=== PATIENT | male | born 1950 | race Caucasian/White ===

== ENCOUNTER 2025-06-08 11:26 | Outpatient (CLI) | payer MEDICARE, BC ==
--- NOTE | 2025-06-08 12:36 | RADIOLOGY REPORT ---
EXAM: DI SHOULDER, COMPLETE (MIN 2 VWS) CLINICAL INDICATION: LEFT JOINT SHOULDER PAIN TECHNIQUE: DI SHOULDER, COMPLETE (MIN 2 VWS) Comparison: None FINDINGS/IMPRESSION: There is no evidence of acute fracture or dislocation. The visualized joint space is well maintained. The alignment is anatomical. There is no radiopaque foreign body.
== END 2025-06-08 23:59 | disposition home or self-care (01) ==
LOC: RAD 11:26
PROVIDERS: ATTEND Physician Assistant
DX: S46.812A Strain of other muscles, fascia and tendons at shoulder and upper arm level, left arm, initial encounter (principal); M25.512 Pain in left shoulder; X58.XXXA Exposure to other specified factors, initial encounter; Y93.89 Activity, other specified; Y92.89 Other specified places as the place of occurrence of the external cause; Y99.8 Other external cause status
CPT/HCPCS: 73030

== ENCOUNTER 2025-08-12 06:48 | Outpatient (CLI) | payer MEDICARE, BC ==
[~2025-08-12 06:48] MED LIST: LIDOcaine 1% 30ml preserv. free vial ONE; LIDOcaine 1%/PF 5ML 10 MG/ML VIAL ONE; iohexol 300 MG/1 ML 50ml polymer ONE
--- NOTE | 2025-08-12 09:12 | RADIOLOGY REPORT ---
ANGIO ARTHROGRAM (A) Date: 08/12/2025 07:38 AM Clinical History: PAIN IN LEFT SHOULDER Comparison: CT CT UPPER EXTREM(SHOULDER/ARM) on DOS: 08/12/25, DI SHOULDER, COMPLETE (MIN 2 VWS) on DOS: 06/08/25 Procedure: Verbal and written informed consent were obtained from the patient for the procedure of right shoulder joint fluoroscopically guided arthrogram, after the procedure, risks, and benefits of the procedure were explained to the patient. Risks include bleeding, infection, reaction to injected medications, and damage to surrounding anatomic structures. The patient's questions were answered. The patient's most recent medical history was reviewed. A time out was performed to verify the patient's name, date of , and correct location of the procedure, prior to initiation of the procedure. The patient was placed supine on the fluoroscopic table and the area overlying the right should joint was prepped and draped in the usual sterile fashion. The patient tolerated the procedure well. There were no immediate complications. Home-care instructions were reviewed with the patient prior to the patient's discharge from the fluoroscopy suite. The patient verbally affirmed understanding of these instructions. Impression: Technically successful fluoroscopically guided RIGHT SHOULDER JOINT arthrogram. The patient was transported to CT for further imaging at the completion of the procedure. Procedure by Dr. Ward
--- NOTE | 2025-08-12 09:59 | RADIOLOGY REPORT ---
CLINICAL INDICATION: ARTHROGRAM TECHNIQUE: CT of the left shoulder is performed with intra-articular contrast. The procedure report is documented elsewhere. Coronal and sagittal reformatted images are provided. COMPARISON: DI SHOULDER, COMPLETE (MIN 2 VWS) on DOS: 06/08/25 CT Dose: CTDI volume is 18.0 mGy. Dose-length product is 428.2 mGy*cm FINDINGS: There is good intra-articular distention of the glenohumeral joint with iodinated contrast. There is a full-thickness supraspinatus tear suspected at the greater tuberosity insertion. Either high-grade partial-thickness versus full-thickness infraspinatus tear is also suspected. There is no filling defect about the subscapularis tendon to suggest a high-grade tear. Small subacromial subdeltoid bursal fluid. Dilute contrast is noted within the long head biceps tendon sheath, suggesting communication with the glenohumeral joint which is a normal finding. Tenosynovitis is not excluded. There is no full-thickness disruption of the long head biceps tendon suspected. No evidence of labral tear suspected. The glenohumeral joint space is maintained. There are small subchondral cysts in the superolateral humeral head. The glenohumeral alignment is preserved. The acromioclavicular joint space is narrowed. Regional soft tissues are unremarkable. IMPRESSION: 1. Full-thickness tear of supraspinatus and high-grade partial-thickness versus full-thickness infraspinatus tear. 2. No high-grade labral tear detected. 3. 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 4. Small subacromial subdeltoid bursal fluid. All CT scans at this medical facility are performed using dose modulation techniques as appropriate to a performed exam including the following: Automated exposure control was utilized; adjustment of the MA and/or KV according to patient size; and use of iterative reconstruction technique.
== END 2025-08-12 23:59 | disposition home or self-care (01) ==
LOC: RAD 06:48
PROVIDERS: ATTEND Physician Assistant
DX: M75.122 Complete rotator cuff tear or rupture of left shoulder, not specified as traumatic (principal); M19.012 Primary osteoarthritis, left shoulder; M75.52 Bursitis of left shoulder
CPT/HCPCS: 23350; 73201; 77002; J2003; J3490; Q9967